=== PATIENT | male | born 1985 | race Caucasian/White ===

== ENCOUNTER 2016-09-14 09:24 | Emergency (ER) | payer OTHER ==
[2016-09-14 09:49] VITALS: BP 116/79
--- NOTE | 2016-09-14 10:24 | UC ---
Skin Complaint HPI - HPI Summary HPI Summary: ABOUT A WEEK OF ITCHING ON HANDS AND FEET AND WAIST. HAS SMALL PAPULAR RASH. CHANGES LAUNDRY DETERGENT RECENTLY. NO OTHER NEW EXPOSURES. ALSO HAS AN ITCHY SPOT ON THE SHAFT OF HIS PENIS. HADSOMETHING SIMILAR IN THE PAST THAT RESOLVED ON ITS OWN. NO ULCERATION OF THE SKIN OR PENILE DISCHARGE. HAS NOT BEEN SEXUALLY ACTIVE IN OVER A YEAR. NO URINARY SX. - History of Current Complaint Chief Complaint: UCSkin Time Seen by Provider: 09/14/16 10:11 Stated Complaint: SKIN COMPLAINT Hx Obtained From: Patient Onset/Duration: Gradual Onset, Lasting Days, Still Present Timing: Constant Onset Severity: Moderate Current Severity: Moderate Pain Intensity: 7 Pain Scale Used: 0-10 Numeric Character: Pruritus, Redness Aggravating: Nothing Alleviating: Nothing Associated Signs & Symptoms: Positive: Negative - Allergy/Home Medications Allergies/Adverse Reactions: Allergies Allergy/AdvReac Type Severity Reaction Status Date / Time GIACOMO Inhibitors Allergy Unknown Verified 07/16/16 17:52 Reaction Details Aspirin Allergy Airway Verified 08/18/14 19:59 [From Aspirin Compound] Obstruction Phenacetin Allergy Airway Verified 08/18/14 19:59 [From Aspirin Compound] Obstruction Acetaminophen [From Tylenol] AdvReac GI Upset Verified 08/18/14 19:59 Beta Aurelia Allergy See Comment Uncoded 07/16/16 17:52 Review of Systems Constitutional: Negative Skin: Rash Respiratory: Negative Cardiovascular: Negative Gastrointestinal: Negative Genitourinary: Negative All Other Systems Reviewed And Are Negative: Yes PMH/Surg Hx/FS Hx/Imm Hx Endocrine History Of: Denies: Diabetes, Thyroid Disease Cardiovascular History Of: Reports: Cardiac Disorders - Bradycardia Denies: Hypertension, Pacemaker/ICD Respiratory History Of: Reports: COPD Denies: Asthma GI/ History Of: Denies: Gastroesophageal Reflux, Ulcer, Renal Disease Neurological History Of: Reports: Seizures - LAST SEIZURE-10/2012 Denies: CVA, Dementia Psychological History Of: Reports: Anxiety - ON MEDICATION FOR, Depression - ON MEDICATION FOR, Bipolar Disorder Other History Of: Negative For: Anticoagulant Therapy - Surgical History Surgical History: Yes Surgery Procedure, Year, and Place: cyst removal to RIGHT testicle 1995- [place]. right ear surgery- tube removed - Family History Known Family History: Positive: Cardiac Disease, Hypertension - Social History Alcohol Use: Weekly Alcohol Amount: pt states he stopped drinking about 4 mo ago Substance Use Type: None Smoking Status (MU): Heavy Every Day Tobacco Smoker Type: Cigarettes, Smokeless Tobacco Amount Used/How Often: 9-10 cigs/day Length of Time of Smoking/Using Tobacco: 15+ years Have You Smoked in the Last Year: Yes Household Exposure Type: Cigarettes - Immunization History Most Recent Tetanus Shot: unknown Physical Exam Triage Information Reviewed: Yes Appearance: Well-Appearing, No Pain Distress, Well-Nourished Vital Signs: Initial Vital Signs Temp 98.4 F 09/14/16 09:44 Pulse 60 09/14/16 09:44 Resp 16 09/14/16 09:44 BP 116/79 09/14/16 09:44 Pulse Ox 100 09/14/16 09:44 Vital Signs Reviewed: Yes Eyes: Positive: Conjunctiva Clear ENT: Positive: Hearing grossly normal Neck: Positive: Supple, Nontender, No Lymphadenopathy Respiratory: Positive: No respiratory distress, No accessory muscle use Cardiovascular: Positive: Pulses Normal Abdomen Description: Positive: Soft Musculoskeletal: Positive: No Edema Neurological: Positive: Alert Psychological: Positive: Age Appropriate Behavior Skin: Positive: rashes - PINPOINT PAPULAR RASH OVER DORSUM OF HANDS AND FEET AND AROUND WAIST. 2 CM DRY FLAKY PATCH SHAFT OF PENIS NEAR CORONAL SULCUS Course/Dx - Course Course Of Treatment: CONSIDER CONTACT DERMATITIS FROM NEW LAUNDRY DETERGENT VS. SCABIES. WILL GIVE RX FOR ELIMITE FOR PT TO USE SHOULD TX WITH TOPICAL STEROID BE INEFFECTIVE. - Differential Diagnoses - Skin Complaint Differential Diagnoses: Contact Dermatitis, Scabies, Other - DYSHIDROTIC ECZEMA - Diagnoses Provider Diagnoses: ECZEMA Discharge - Discharge Plan Condition: Stable Disposition: HOME Prescriptions: Permethrin [Elimite] 5 % TOPICAL ONCE #1 tube Triamcinolone 0.1% CREAM(NF) [Kenalog Cream 0.1%(NF)] 1 applic TOPICAL TID PRN # 1 tube PRN Reason: Itching Patient Education Materials: Contact Dermatitis (ED), Eczema (ED) Referrals: Danilo HILL,Alejandro Oneill [Primary Care Provider] - If Needed Additional Instructions: USE OTC TOPICAL HYDROCORTISONE SPARINGLY TWICE DAILY TO ITCHY PATCH ON PENIS. IF NOT IMPROVED AFTER 2 WEEKS SEEK RE-EVALUATION. AVOID UNPROTECTED INTERCOURSE WHILE USING TOPICAL STEROID ON PENIS. USE PRESCRIPTION STRENGTH STEROID (TRIAMCINOLONE) ON OTHER ITCHY AREAS (HAND, FEET AND WAIST) UP TO 3 TIMES DAILY NEEDED. IF NOT IMPROVING CONSIDER SCABIES AND FILL RX FOR ELIMITE. FOLLOW-UP WITH DERM IF NEEDED DERMATOLOGY IN [place] Dr. Janett Beyer. [phone] [place] [address] Kelly Young DERMATOLOGY IN [place] DR. KVNG WHITE [phone]
== END 2016-09-14 10:50 | disposition home or self-care (01) ==
LOC: UCEAST 09:24
DX: L30.9 Dermatitis, unspecified (principal); Z88.6 Allergy status to analgesic agent; Z88.8 Allergy status to other drugs, medicaments and biological substances; F17.210 Nicotine dependence, cigarettes, uncomplicated
CPT/HCPCS: 99212; G0463

== ENCOUNTER 2017-10-20 10:42 | Emergency (ER) | payer SELFPAY ==
[2017-10-20 11:00] VITALS: BP 124/70
--- NOTE | 2017-10-20 11:03 | UC ---
Back Pain HPI - HPI Summary HPI Summary: Pt presents with right arm and LE numbness, tingling, and hypersensitivity for the last 3 weeks. He tells me that this began spontaneously without injury. He has no pain. Sensations feel different on his right arm and leg - everything "feels like needles". This does not change based on activity, position, or rest. He denies fever, chills, headache, dizziness, SOB, chest pain, abdominal pain, n/v/d/c, or recent illness. - History of Current Complaint Chief Complaint: UCUpperExtremity Stated Complaint: ARM NUMBNESS Hx Obtained From: Patient Onset/Duration: Sudden Onset Timing: Constant Pain Intensity: 0 Aggravating Factor(s): Nothing Alleviating Factor(s): Nothing Associated Signs And Symptoms: Positive: Negative - Allergies/Home Medications Allergies/Adverse Reactions: Allergies Allergy/AdvReac Type Severity Reaction Status Date / Time GIACOMO Inhibitors Allergy See Comment Verified 10/20/17 10:50 aspirin Allergy Swelling Verified 10/20/17 10:49 Of Face,Lips,& Throat Beta Aurelia Allergy See Comment Uncoded 07/16/16 17:52 PMH/Surg Hx/FS Hx/Imm Hx Previously Healthy: Yes Psychological History: Anxiety, Depression Other History Of: Negative For: Anticoagulant Therapy - Surgical History Surgical History: Yes Surgery Procedure, Year, and Place: cyst removal to RIGHT testicle 1995- [place]. right ear surgery- tube removed - Family History Known Family History: Positive: Cardiac Disease, Hypertension - Social History Occupation: Employed Full-time Lives: With Family Alcohol Use: None Substance Use Type: None Smoking Status (MU): Heavy Every Day Tobacco Smoker Type: Cigarettes, Smokeless Tobacco Amount Used/How Often: 2 P / 4 day Length of Time of Smoking/Using Tobacco: 15+ years Have You Smoked in the Last Year: Yes Household Exposure Type: Cigarettes - Immunization History Most Recent Tetanus Shot: unknown Review of Systems Constitutional: Negative Skin: Negative Respiratory: Negative Cardiovascular: Negative Gastrointestinal: Negative Motor: Negative Neurovascular: Decreased Sensation Musculoskeletal: Negative Neurological: Numbness Psychological: Negative All Other Systems Reviewed And Are Negative: Yes Physical Exam - Summary Physical Exam Summary: GENERAL: NAD. WDWN. No pain distress. SKIN: No rashes, sores, ulcers, masses, lesions. HEENT: Head: AT/NC Eyes: PERRLA. EOM intact. NECK: Supple. No lymphadenopathy. FROM. NTTP. CHEST: CTAB. No r/r/w. No accessory muscle use. Breathing comfortably and in no distress. CV: RRR. Without m/r/g. Pulses intact throughout. Brisk cap refill. MSK: FROM and 5/5 strength throughout. No edema. NEURO: Alert. CN II-XII grossly intact. C4-T1 sensations right UE intact, but feel hypersensitive and like "needles" compared to left. L3-S1 right LE sensations intact, but feel hypersensitive and like "needles" compared to left. Reflex intact b/l UEs and LEs. PSYCH: Age appropriate behavior. Triage Information Reviewed: Yes Vital Signs: Initial Vital Signs Temp 99 F 10/20/17 10:53 Pulse 74 10/20/17 10:53 Resp 18 10/20/17 10:53 BP 124/70 10/20/17 10:53 Pulse Ox 99 10/20/17 10:53 Back Pain Course/Dx - Course Course Of Treatment: XRs: Lumbar: IMPRESSION: MILD DEGENERATIVE DISC DISEASE. IMPRESSION: MILD DEGENERATIVE DISC DISEASE. His numbness/hypersensitivity is not impairing his daily life, other than being mildly bothersome at times. His exam and XRs are WNL. I am unsure as to the etiology of his numbness/ hypersensitivity, but will refer him to Ortho for further investigation. - Differential Dx/Diagnosis Provider Diagnoses: Numbness right arm. Numbness right leg Discharge - Discharge Plan Condition: Stable Disposition: HOME Patient Education Materials: Lumbar Radiculopathy (ED), Cervical Radiculopathy (ED) Referrals: Danilo HILL,Alejandro Oneill [Primary Care Provider] - Celestino Pelayo MD [Medical Doctor] - As Soon As Possible Additional Instructions: If you develop a fever, shortness of breath, chest pain, new or worsening symptoms - please call your PCP or go to the ED.
--- NOTE | 2017-10-20 11:48 | RAD ---
HISTORY: Numbness COMPARISONS: None VIEWS: 6, Frontal, lateral, swimmer's, open-mouth odontoid, and bilateral oblique views of the cervical spine. FINDINGS: The cervical spine is visualized from the skull base through C7-T1. ALIGNMENT: The alignment is normal. VERTEBRAL BODIES: The odontoid process is intact. The atlantoaxial intervals are symmetric. There is mild anterolateral marginal osteophyte formation. JOINTS: There is no subluxation or dislocation. The facet joints are unremarkable. There is no osseous neural foraminal narrowing on the oblique views. INTERVERTEBRAL DISCS: There is mild diffuse loss of intervertebral disc height. SOFT TISSUE: The prevertebral soft tissues are normal. OTHER: The skull base is normal. The lung apices are clear. IMPRESSION: MILD DEGENERATIVE DISC DISEASE.
--- NOTE | 2017-10-20 11:49 | RAD ---
HISTORY: Numbness COMPARISONS: CT dated July 19, 2013 VIEWS: 5 , Frontal, lateral, coned-down lateral sacral, and bilateral oblique views of the lumbar spine. FINDINGS: ALIGNMENT: The alignment is normal. VERTEBRAL BODIES: The vertebral body heights are normal. The interpedicular distances are normal. There is mild anterolateral marginal osteophyte formation. JOINTS: The facet joints are normal. INTERVERTEBRAL DISCS: There is mild diffuse loss of intervertebral disc height. SOFT TISSUE: Unremarkable. OTHER: The pelvis is unremarkable. The lung bases are clear. IMPRESSION: MILD DEGENERATIVE DISC DISEASE
== END 2017-10-20 12:05 | disposition home or self-care (01) ==
LOC: UCEAST 10:42
DX: R20.0 Anesthesia of skin (principal); F41.9 Anxiety disorder, unspecified; F32.9 Major depressive disorder, single episode, unspecified; Z88.6 Allergy status to analgesic agent; Z88.8 Allergy status to other drugs, medicaments and biological substances; F17.210 Nicotine dependence, cigarettes, uncomplicated
CPT/HCPCS: 72050; 72110; 99211; G0463

== ENCOUNTER 2018-03-13 07:40 | Day surgery (SDC) | payer MEDICAID ==
--- NOTE | 2018-03-08 19:03 | HP ---
PREOP HISTORY AND PHYSICAL: DATE OF ADMISSION/OPERATION: 03/13/18 [facility] CHIEF COMPLAINT: Numbness and tingling in the right hand for 6 months. HISTORY OF PRESENT ILLNESS: Royal is a 32-year-old man who has 6 months of numbness and tingling in his right hand. Symptoms are rated as 9/10. He had nerve conduction study, which shows right carpal tunnel syndrome. His numbness involves all of his fingers. He has difficulty with sleep because of his symptoms. He has not had any conservative treatment. PAST MEDICAL HISTORY: Atrial fibrillation and [place] in 2013. 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 He has not had any events since the initial event in 2013. He has a history of COPD and anxiety. PAST SURGICAL HISTORY: Just the cardiac loop implant. MEDICATIONS: His only medication is Ativan 0.5 mg p.o. p.r.n. ALLERGIES: To BETA-BLOCKERS and GIACOMO INHIBITORS, also to ASPIRIN. FAMILY HISTORY: Diabetes, heart disease, hypertension, prostate cancer, and leukemia. SOCIAL HISTORY: He lives with his spouse. He currently is out of work because of chronic pain. He smokes 8 to 9 cigarettes a day for 15 years, has 3 to 4 beers per month. He denies drug use. REVIEW OF SYSTEMS: Negative for cephalic, cardiovascular, respiratory, gastrointestinal, genitourinary, other musculoskeletal, skin, neurologic, endocrine and hematologic symptoms. PHYSICAL EXAMINATION GENERAL: He is a healthy-appearing, very pleasant man, in minimal distress at rest. VITAL SIGNS: Height 69.5 inches, weight is not recorded today. Pulse 88, respirations are 18. HEENT: Exam is unremarkable. His eye movements are concentric. NECK: He has good range of motion of his neck without pain. No masses are palpated. LUNGS: Clear to auscultation. Good inspiratory effort. No wheezing. CARDIAC: Regular rate and rhythm without murmur. ABDOMEN: Soft and nontender. EXTREMITIES: He has a positive Tinel's sign and Phalen's test on the right hand. There is no thenar atrophy. He has decreased sensation in all of his fingers. He has a positive Tinel's sign of the ulnar nerve at the wrist. NEUROLOGICAL: He is alert and oriented without focal deficit. IMPRESSION: Median and ulnar nerve compression at the right wrist. PLAN: Plan is for median and ulnar nerve decompression of the right wrist. The surgical procedure, risks, and benefits were explained to the patient and he agrees to proceed. We will see the patient back in followup approximately 10 days postop. [id number]/[facility] #: [id number] MTDD
[~2018-03-13 07:40] MED LIST: Buffered Lidocaine 0.9% SYRIN* 5 ML/SYR SYRINGE INTRADERM ONE; Lidocaine 1% INJ* 10 MG/ML 30 ML SDV ONE
[2018-03-13] MEDS ORDERED: ceFAZolin 2 GM PREMIX (*) 0 GM/0 ML BAG IVPB ONE (07:50)
[2018-03-13] MEDS ORDERED: Midazolam* 1 MG/ML 2 ML VIAL (2 MG) ONE (08:52)
[2018-03-13] MEDS ORDERED: fentaNYL* 50 MCG/ML 2 ML VIAL (100 MCG VIAL) ONE (08:52)
[2018-03-13] MEDS ORDERED: Propofol* 10 MG/ML 20 ML BTL IV PUSH ONE (08:52)
[2018-03-13] MEDS ORDERED: Naloxone* 0.4 MG/ML 1 ML VIAL IV PRN (10:08)
[2018-03-13 11:56] VITALS: BP 102/60
--- NOTE | 2018-03-14 02:42 | OP ---
DATE OF OPERATION: 03/13/18 - [facility] DATE OF : 85 SURGEON: Nroa Talyor MD TRUCK BRACER: FABIOLA Yoon ANESTHESIA: Local MAC. PRE-OP DIAGNOSES: Carpal tunnel syndrome and ulnar nerve compression at the right wrist. POST-OP DIAGNOSES: Carpal tunnel syndrome and ulnar nerve compression at the right wrist. OPERATIVE PROCEDURE: Ulnar nerve decompression at the right wrist and carpal tunnel release. ESTIMATED BLOOD LOSS: Zero. TOURNIQUET TIME: About 20 minutes. INDICATION FOR PROCEDURE: Royal is a 32-year-old male who has numbness and tingling in the median nerve distribution and ulnar nerve distribution of his right hand. He has nerve conduction study consistent with carpal tunnel syndrome and he has clinical ulnar nerve compression at the right wrist. He presents for decompression of both nerves at the right wrist. DESCRIPTION OF PROCEDURE: The patient was brought to the operating room, was given sedation anesthetic and a local infiltration of 10 cc of 1% plain lidocaine in the palm and distal aspect of his right forearm. The skin of his right hand and forearm was prepped and draped in the usual sterile fashion. The hand and forearm were exsanguinated and the tourniquet elevated to 250 mmHg. A longitudinal incision was made in the palm with a zig-zag across the wrist crease. We dissected through the subcutaneous tissue down to the transverse carpal ligament. The ligament was divided sharply with a knife and then more proximally with the scissors. The ulnar nerve was then located in the distal forearm just radial to the flexor carpi ulnaris tendon and was traced with the ulnar artery proximal and distal into the mid forearm. Guyon's canal was completely released. The nerve was in good condition. The wound was irrigated. The skin edges reapproximated with 4- 0 nylon suture. The wound was dressed with Xeroform, 4x4, Webril, and an Hima wrap. The patient tolerated the procedure well and was brought to the recovery room in good condition. [id number]/[facility] #: [id number] MTDD
== END 2018-03-13 11:45 | disposition home or self-care (01) ==
LOC: OREAST 07:40
PROVIDERS: ATTEND Orthopaedic Surgery
DX: G56.01 Carpal tunnel syndrome, right upper limb (principal); G56.21 Lesion of ulnar nerve, right upper limb; I25.2 Old myocardial infarction; J44.9 Chronic obstructive pulmonary disease, unspecified; F41.9 Anxiety disorder, unspecified; Z72.0 Tobacco use; F31.9 Bipolar disorder, unspecified
CPT/HCPCS: J0690; J2250; J2704; J3010